=== PATIENT | male | born 1970 | race Caucasian/White ===

== ENCOUNTER 2018-01-03 09:49 | Inpatient (IN) | payer OTHER ==
[~2018-01-03 09:49] MED LIST: ETOMIDATE 20 MG INJ; SUCCINYLCHOLINE CHLORIDE 100 MG/5 ML SYG IV
[2018-01-03] MEDS ORDERED: NALOXONE (0.4 MG/ML) INJ (10:21)
[2018-01-03] MEDS: NALOXONE 2 MG SYG IV (10:30)
[2018-01-03] MEDS: CEFEPIME 2GM/50 ML (PMX) 50 ML IVPB ×2 (10:36→15:44)
[2018-01-03] MEDS: SOD CHLORIDE 0.9% 1,000 ML IV ×3 (10:43→20:28)
[2018-01-03] MEDS ORDERED: PHENYLephrine 20MG IN 250 ML 0 ML (11:01)
[2018-01-03] MEDS ORDERED: NORepinephrine 8MG/250 ML (PMX 250 ML (11:02)
[2018-01-03] MEDS: NORepinephrine 8MG/250 ML (PMX 250 ML IV (11:15)
[2018-01-03] MEDS: SODIUM CHLORIDE 0.9% 1L BAG IV* (11:30)
[2018-01-03 11:49] LABS: ADD UMIC YES; UR ASCORBIC ACID NEGATIVE (NEGATIVE); UR BILIRUBIN (Dip) NEGATIVE (NEGATIVE); UR BLOOD (Dip) 2+ mg/dL (NEGATIVE); UR CLARITY CLEAR (CLEAR); UR COLOR AMBER (YELLOW); UR GLUCOSE (Dip) 1+ mg/dL (NEGATIVE); UR KETONES (Dip) NEGATIVE (NEGATIVE); UR LEUKOCYTE ESTERASE (Dip) NEGATIVE Leu/ul (NEGATIVE); UR NITRITE (Dip) NEGATIVE (NEGATIVE); UR RBC 5 /HPF (0-5); UR SPECIFIC GRAVITY (Dip) 1.018 (1.003-1.030); UR TOTAL PROTEIN (Dip) NEGATIVE (NEGATIVE); UR UROBILINOGEN (Dip) 1+ mg/dL (NEGATIVE); UR WBC 1 /HPF (0-5)
[2018-01-03] MEDS: PROPOFOL 200 MG INJ IV (12:00)
[2018-01-03 12:03] LABS: ADD MAN DIFF? NO
[2018-01-03 12:11] LABS: ABNORMAL IP MESSAGE 1; BASOPHILS % 0.1 % (0.0-2.0); HEMATOCRIT 30.1 % (42.0-52.0); HEMOGLOBIN 9.8 g/dl (14.0-18.0); LYMPHOCYTES # 1.3 10^3/ul (0.8-2.9); LYMPHOCYTES % 9.9 % (15.0-51.0); MEAN CORPUSCULAR HGB CONC 32.6 g/dl (32.0-37.0); MEAN CORPUSCULAR VOLUME 101.3 fl (82.0-101.0); MEAN PLATELET VOLUME 10.4 fl (7.4-10.4); MONOCYTE # 2.1 10^3/ul (0.3-0.9); MONOCYTES % 15.8 % (0.0-11.0); NEUTROPHIL # 9.9 10^3/ul (1.6-7.5); NEUTROPHILS % 73.2 % (39.0-77.0); NUCLEATED RED BLOOD CELLS # 0.1 10^3/ul (0.0-0.0); NUCLEATED RED BLOOD CELLS% 0.4 /100WBC (0.0-0.0); PLATELET COUNT 83 10^3/UL (140-415); POSITIVE DIFF @See below; RED BLOOD COUNT 2.97 10^6/ul (4.70-6.10); RED CELL DISTRIBUTION WIDTH 14.6 % (11.5-14.5)
[2018-01-03 12:11] LABS: WHITE BLOOD COUNT 13.5 10^3/ul (4.8-10.8)
[2018-01-03] MEDS: MIDAZOLAM (DRIP) 50 mg/50 mL 50 ML IV ×2 (12:12→23:32)
[2018-01-03] MEDS: LORAZEPAM 2 MG INJ IV (12:14)
[2018-01-03 12:27] LABS: ALANINE AMINOTRANSFERASE 73 IU/L (13-69); ALBUMIN 2.6 g/dl (3.3-4.9); ALBUMIN/GLOBULIN RATIO 1.36; ALKALINE PHOSPHATASE 64 IU/L (42-121); ANION GAP 20 (8-16); ASPARTATE AMINO TRANSFERASE 23 IU/L (15-46); BILIRUBIN,INDIRECT 0.5 mg/dl (0-1.1); BILIRUBIN,TOTAL 0.5 mg/dl (0.2-1.3); BLOOD UREA NITROGEN 83 mg/dl (7-20); CALCIUM 7.7 mg/dl (8.4-10.2); CARBON DIOXIDE 19 mmol/L (21-31); CHLORIDE 106 mmol/L (97-110); GLUCOSE 154 mg/dl (70-220); POTASSIUM 5.3 mmol/L (3.5-5.1); SODIUM 140 mmol/L (135-144); TOTAL PROTEIN 4.5 g/dl (6.1-8.1)
[2018-01-03] MEDS: HYDROmorphONE 1 MG/5 ML IV SYRINGE IV (12:27)
[2018-01-03] MEDS: ONDANSETRON 4 MG INJ IV (12:27)
[2018-01-03 12:32] LABS: INR 1.99; PROTIME 23.1 Sec (11.9-14.9); PT RATIO 1.8
[2018-01-03 12:33] LABS: PARTIAL THROMBOPLASTIN TIME 45.3 Sec (25.0-35.0)
[2018-01-03 12:35] LABS: AADO2 Arterial 589.9 mmHg (7.0-24.0); Arterial Base Excess -7.4 mmol/L (-3.0-3); Arterial Blood Gas Oxygen Sat 96.2 mmHG (95.0-98.0); Arterial COHb 0.3 % (0.0-3.0); Arterial Fraction of Oxyhgb 95.6 % (93.0-99.0); Arterial HCO3 16.7 mmol/L (22.0-26.0); Arterial MetHb 0.3 % (0.0-1.5); Arterial Total Hemglobin 13.4 g/dl (12.0-18.0); Arterial pCO2 30.4 mmhg (35-45); MODE VENT - AC; Site Right Brachial
[2018-01-03 12:36] LABS: LACTIC ACID 11.7 mmol/L (0.5-2.0)
[2018-01-03 12:39] LABS: CREATININE 2.89 mg/dl (0.61-1.24)
[2018-01-03] MEDS: FENTAnyl (DRIP) 1000 mcg/100mL 100 ML IV ×2 (12:39→23:40)
[2018-01-03 12:44] LABS: TROPONIN-I 0.123 ng/ml (0.00-0.12)
[2018-01-03] MEDS: VANCOMYCIN 1 GM (PMX) 250 ML IVPB (13:41)
[2018-01-03] MEDS ORDERED: ONDANSETRON 4 MG INJ IV (15:00)
[2018-01-03] MEDS ORDERED: ACETAMINOPHEN 325 MG TAB PO (15:00)
[2018-01-03 15:40] LABS: LACTIC ACID 2.2 mmol/L (0.5-2.0)
[2018-01-03] MEDS: CLINDAMYCIN 900 MG/D5W (PMX) 50 ML IVPB (16:22)
[2018-01-03] MEDS ORDERED: VANCOMYCIN IV PER PHARMACY XX (17:00)
[2018-01-03] MEDS ORDERED: BISACODYL 10 MG SUPP PR (17:00)
[2018-01-03] MEDS: VANCOMYCIN 500MG/NS (PMX) 100 ML IVPB (17:00)
[2018-01-03] MEDS: LACTATED RINGER'S 1,000 ML IV (17:30)
[2018-01-03] MEDS ORDERED: NORepinephrine 8MG/250 ML (PMX 250 ML IV (18:30)
[2018-01-03 18:44] LABS: LACTIC ACID 2.6 mmol/L (0.5-2.0)
[2018-01-03] MEDS: HYDROmorphONE 2 MG/ML SYG IV (19:28)
[2018-01-03] MEDS: DEXAMETHASONE 4 MG/ML 1 ML INJ IV ×2 (19:28→22:43)
[2018-01-03] MEDS ORDERED: PHENYLephrine 20MG IN 250 ML 250 ML (20:19)
[2018-01-03] MEDS: PHENYLephrine 20MG IN 250 ML 250 ML IV (20:34)
[2018-01-03] MEDS: FAMOTIDINE 20 MG INJ IV (21:04)
[2018-01-03] MEDS: LEVETIRACETAM 500 MG (PMX) 100 ML IVPB (21:12)
[2018-01-03 21:39] LABS: AADO2 Arterial 491.1 mmHg (7.0-24.0); Allen Test ACCEPTAB; Arterial Base Excess -12.4 mmol/L (-3.0-3); Arterial Blood Gas Oxygen Sat 98.7 mmHG (95.0-98.0); Arterial COHb 0.3 % (0.0-3.0); Arterial Fraction of Oxyhgb 98.1 % (93.0-99.0); Arterial HCO3 14.7 mmol/L (22.0-26.0); Arterial MetHb 0.3 % (0.0-1.5); Arterial pCO2 37.8 mmhg (35-45); MODE VENT - AC; Site Right Radial
[2018-01-03] MEDS ORDERED: HYDROmorphONE 2 MG/ML SYG IV (22:00)
[2018-01-03] MEDS: PHENYLephrine 40 MG in DEXTROSE 5% 496 ML IV (22:25)
[2018-01-03 22:30] LABS: LACTIC ACID 2.7 mmol/L (0.5-2.0)
[2018-01-03] MEDS: PROPOFOL 100 ML IV (22:45)
[2018-01-03] MEDS ORDERED: PHENYLephrine 40 MG in DEXTROSE 5% 496 ML IV (23:00)
[2018-01-03] MEDS: SODIUM BICARBONATE (IV ADD) 100 MEQ in DEXTROSE 5% 1,000 ML IV (23:01)
[2018-01-04 01:26] LABS: TROPONIN-I 0.225 ng/ml (0.00-0.12)
[2018-01-04] MEDS: PHENYLephrine 80 MG in DEXTROSE 5% 492 ML IV ×2 (02:06→09:32)
[2018-01-04] MEDS: PROPOFOL 100 ML IV ×2 (02:54→06:00)
[2018-01-04] MEDS ORDERED: PENDING SANTYL ORDER FOR WOUND CARE XX (03:30)
[2018-01-04] MEDS: DEXAMETHASONE 4 MG/ML 1 ML INJ IV ×4 (05:09→23:47)
[2018-01-04] MEDS: MIDAZOLAM (DRIP) 50 mg/50 mL 50 ML IV (06:01)
[2018-01-04 06:37] LABS: WHITE BLOOD COUNT 14.5 10^3/ul (4.8-10.8)
[2018-01-04 06:37] LABS: ABNORMAL IP MESSAGE 1; HEMATOCRIT 32.4 % (42.0-52.0); HEMOGLOBIN 11.1 g/dl (14.0-18.0); MEAN CORPUSCULAR HEMOGLOBIN 33.3 pg (29.0-33.0); MEAN CORPUSCULAR HGB CONC 34.3 g/dl (32.0-37.0); MEAN CORPUSCULAR VOLUME 97.3 fl (82.0-101.0); MEAN PLATELET VOLUME 11.1 fl (7.4-10.4); PLATELET COUNT 145 10^3/UL (140-415); POSITIVE DIFF @See below; RED BLOOD COUNT 3.33 10^6/ul (4.70-6.10); RED CELL DISTRIBUTION WIDTH 14.4 % (11.5-14.5)
[2018-01-04 06:47] LABS: ADD MAN DIFF? YES
[2018-01-04 07:20] LABS: LACTIC ACID 3.9 mmol/L (0.5-2.0)
[2018-01-04 07:51] LABS: ANION GAP 24 (8-16); BLOOD UREA NITROGEN 106 mg/dl (7-20); CALCIUM 8.5 mg/dl (8.4-10.2); CARBON DIOXIDE 17 mmol/L (21-31); CHLORIDE 97 mmol/L (97-110); POTASSIUM 5.8 mmol/L (3.5-5.1); SODIUM 132 mmol/L (135-144)
[2018-01-04 07:54] LABS: GLUCOSE 404 mg/dl (70-220)
[2018-01-04 08:10] LABS: CREATININE 4.45 mg/dl (0.61-1.24)
[2018-01-04] MEDS: SODIUM BICARBONATE (IV ADD) 100 MEQ in DEXTROSE 5% 1,000 ML IV ×2 (08:10→16:28)
[2018-01-04 08:34] LABS: AADO2 Arterial 457.5 mmHg (7.0-24.0); Allen Test ACCEPTAB; Arterial Base Excess -10.1 mmol/L (-3.0-3); Arterial Blood Gas Oxygen Sat 98.5 mmHG (95.0-98.0); Arterial COHb 0.3 % (0.0-3.0); Arterial Fraction of Oxyhgb 97.9 % (93.0-99.0); Arterial HCO3 16.2 mmol/L (22.0-26.0); Arterial MetHb 0.3 % (0.0-1.5); Arterial pCO2 36.9 mmhg (35-45); MODE VENT - AC; Site Right Radial
[2018-01-04 09:47] LABS: ANISOCYTOSIS 3+ (0-0); BAND NEUTROPHILS #M 7.9 10^3/ul (0.0-0.6); BAND NEUTROPHILS % (M) 55 % (0-4); ERYTHROBLAST% (NRBC) (M) 1 % (0-0); LYMPHOCYTES #M 1.1 10^3/ul (0.8-2.9); LYMPHOCYTES % (M) 8 % (15-51); METAMYELOCYTES #M 1.3 10^3/ul (0.0-0.0); METAMYELOCYTES %M 9 % (0-0); MICROCYTOSIS 3+ (0-0); MONOCYTE #M 0.2 10^3/ul (0.3-0.9); MONOCYTES % (M) 2 % (0-11); MYELOCYTES #M 0.2 10^3/ul (0.0-0.0); MYELOCYTES % (M) 2 % (0-0); PLATELET ESTIMATE NORMAL; POIKILOCYTOSIS 1+ (0-0); POLYCHROMASIA 2+ (0-0); SEG NEUT #M 4.6 10^3/ul (1.6-7.5); SEGMENTED NEUTROPHILS (M) % 24 % (39-77); SMUDGE%M 10 % (0-0)
[2018-01-04] MEDS: LEVETIRACETAM 500 MG (PMX) 100 ML IVPB ×2 (10:29→20:30)
[2018-01-04] MEDS: FENTAnyl (DRIP) 1000 mcg/100mL 100 ML IV (15:14)
[2018-01-04] MEDS: CEFEPIME 1GM/50 ML (PMX) 50 ML IVPB (15:56)
[2018-01-04] MEDS ORDERED: VANCOMYCIN 1 GM in 250 ML IVPB (17:00)
[2018-01-04] MEDS: FAMOTIDINE 20 MG INJ IV (20:28)
[2018-01-05] MEDS: PROPOFOL 100 ML IV (01:02)
[2018-01-05] MEDS: SODIUM BICARBONATE (IV ADD) 100 MEQ in DEXTROSE 5% 1,000 ML IV ×3 (01:28→18:15)
[2018-01-05] MEDS: FENTAnyl (DRIP) 1000 mcg/100mL 100 ML IV (01:29)
[2018-01-05] MEDS: DEXAMETHASONE 4 MG/ML 1 ML INJ IV ×4 (04:38→23:41)
[2018-01-05 06:03] LABS: VANCOMYCIN,RANDOM 8.9 ug/ml
[2018-01-05] MEDS: LEVETIRACETAM 500 MG (PMX) 100 ML IVPB ×2 (11:36→21:09)
[2018-01-05] MEDS: VANCOMYCIN 1 GM 250 ML IVPB (14:00)
[2018-01-05] MEDS: CEFEPIME 1GM/50 ML (PMX) 50 ML IVPB (16:00)
[2018-01-05] MEDS: FAMOTIDINE 20 MG INJ IV (21:09)
[2018-01-06] MEDS: SODIUM BICARBONATE (IV ADD) 100 MEQ in DEXTROSE 5% 1,000 ML IV (04:09)
[2018-01-06] MEDS: DEXAMETHASONE 4 MG/ML 1 ML INJ IV ×2 (04:43→12:00)
[2018-01-06] MEDS: ACETAMINOPHEN 650 MG SUPP PR (05:04)
[2018-01-06] MEDS: PROPOFOL 100 ML IV ×2 (05:35→13:56)
[2018-01-06] MEDS: FENTAnyl (DRIP) 1000 mcg/100mL 100 ML IV ×2 (05:37→12:00)
[2018-01-06] MEDS: morphine 10 MG INJ IV (12:05)
[2018-01-06] MEDS: LORAZEPAM 2 MG INJ IV ×2 (12:06→12:50)
[2018-01-06] MEDS ORDERED: LEVETIRACETAM 500 MG (PMX) 100 ML IVPB (21:00)
== END 2018-01-06 14:15 | disposition expired | DRG 871 ==
LOC: E/R 09:49 → ICU 14:46
PROC: 0BH17EZ Insertion of Endotracheal Airway into Trachea, Via Natural or Artificial Opening (ICD-10-PCS; principal; 2018-01-03)
PROC: 5A1945Z Respiratory Ventilation, 24-96 Consecutive Hours (ICD-10-PCS; 2018-01-03)
PROC: 4A133R1 Monitoring of Arterial Saturation, Peripheral, Percutaneous Approach (ICD-10-PCS; 2018-01-03)
PROC: 02HV33Z Insertion of Infusion Device into Superior Vena Cava, Percutaneous Approach (ICD-10-PCS; 2018-01-03)
DX: A41.9 Sepsis, unspecified organism (principal); J96.01 Acute respiratory failure with hypoxia; N17.0 Acute kidney failure with tubular necrosis; R65.21 Severe sepsis with septic shock; J18.9 Pneumonia, unspecified organism; C71.9 Malignant neoplasm of brain, unspecified; I82.403 Acute embolism and thrombosis of unspecified deep veins of lower extremity, bilateral; R47.01 Aphasia; G81.91 Hemiplegia, unspecified affecting right dominant side; Z66 Do not resuscitate; G40.909 Epilepsy, unspecified, not intractable, without status epilepticus; K21.9 Gastro-esophageal reflux disease without esophagitis; Z51.5 Encounter for palliative care; I46.9 Cardiac arrest, cause unspecified
CPT/HCPCS: 31500; 36600; 70450; 71045; 76937; 80048; 80053; 80202; 81001; 82803; 83605; 84484; 85025; 85610; 85730; 87040; 87081; 87086; 89220; 93005; 94002; 94003; 94770; 96374; 96375; 96376; 99291-25